=== PATIENT | female | born 1995 | race African-American/Black ===

== ENCOUNTER 2021-04-03 09:22 | Emergency (ER) | payer MEDICAID ==
[~2021-04-03] VITALS: Ht 170.2 cm; Wt 75.0 kg
[2021-04-03] MEDS ORDERED: IBUPROFEN 600 MG TABLET PO ONE (12:30)
[2021-04-03 12:46] VITALS: BP 128/82
[2021-04-03] MEDS ORDERED: IBUP-2070 PO (12:47)
== END 2021-04-03 12:57 | disposition home or self-care (01) ==
LOC: EMS 09:59
DX: S46.811A Strain of other muscles, fascia and tendons at shoulder and upper arm level, right arm, initial encounter (principal); M25.521 Pain in right elbow; W01.0XXA Fall on same level from slipping, tripping and stumbling without subsequent striking against object, initial encounter; Y93.89 Activity, other specified; Y92.89 Other specified places as the place of occurrence of the external cause; Y99.8 Other external cause status
CPT/HCPCS: 29105; 99284; 73060-TC; 73080-TC; 73110-TC; Z7502; Z7610